=== PATIENT | male | born 1970 | race Caucasian/White ===

== ENCOUNTER 2018-01-20 22:38 | Emergency (ER) | payer BC ==
[2015-10-11 06:51] VITALS: BMI 27.0
[~2018-01-20 22:38] MED LIST: APIDRA SOL100 UNIT/1; BAYER ASPIRIN325 MG PO; CELEXA20 MG; CELEXA20 MG PO; COUMADIN5 MG PO; ELIQUIS2.5 MG PO; GABAPENTIN100 MG PO; GLIPIZIDE10 MG PO; GLUCOPHAGE1000 MG PO; K-DUR20 MEQ PO; LEVEMIR100 U/M1 SQ; MS CONTIN15 MG PO; MS CONTIN30 MG PO; NIACIN250 M1 PO; NOVOLOG100 U/M1; NOVOLOG100 U/M1 SC; PERCOCET 10/3251 TA1; PERCOCET 10/3251 TA1 PO; PRINIVIL20 MG PO; TOUJEO SOL300 UNIT/1; ZOCOR20 MG PO
[2018-01-20 23:15] LABS: BASOPHILS 0.5 % (0-2); EOSINOPHILS 3.9 % (0-7); HEMATOCRIT 43.8 % (42.0-54.0); HEMOGLOBIN 15.4 g/dL (13.5-17.5); IMMATURE GRANULOCYTES 0.2 % (0-5); LYMPHOCYTES 50.2 % (15-50); MCH 32.8 pg (26.0-34.0); MCHC 35.2 g/dL (31.0-37.0); MCV 93.2 fL (80.0-100.0); MEAN PLATELET VOLUME 10.8 fL (7.4-10.4); MONOCYTES 12.4 % (2-11); NEUTROPHILS 32.8 % (40-80); PLATELET COUNT 376 10x3/uL (130-400); RDW 12.6 % (11.5-14.5); WBC 8.2 10x3/uL (4.8-10.8)
[2018-01-20 23:20] LABS: APTT 27.4 SECONDS (22.8-39.4); INR 0.97 (0.85-1.17); PROTIME 12.5 SECONDS (11.6-15.0)
[2018-01-20 23:21] LABS: D-DIMER-QUANTITATIVE 0.33 ug/mLFEU (0.20-0.54)
[2018-01-20 23:23] LABS: ALBUMIN 3.3 g/dL (3.4-5.0); ALKALINE PHOSPHATASE 75 U/L (46-116); ALT (SGPT) 23 U/L (10-68); BILIRUBIN - TOTAL 0.47 mg/dL (0.2-1.3); CALC OSMOLALITY 286 mosm/kg (275-300); CALCIUM 7.9 mg/dL (8.5-10.1); CARBON DIOXIDE 24.2 mmol/L (21.0-32.0); CHLORIDE - SERUM 104 mmol/L (98-107); CREATININE - SERUM 1.1 mg/dL (0.6-1.3); GLUCOSE 249 mg/dL (74-106); POTASSIUM - SERUM 3.9 mmol/L (3.5-5.1); PROTEIN - SERUM 6.7 g/dL (6.4-8.2); SODIUM 139 mmol/L (136-145); UREA NITROGEN 15 mg/dL (7-18); eGFR NON AFRICAN AMERICAN 76 mL/min (90-120)
[2018-01-20 23:35] LABS: CHOL - HDL RATIO 4.4 ratio (2.3-4.9); CHOLESTEROL, TOTAL 166 mg/dL (0-200); CKMB 1.1 U/L (0.0-3.6); CREATINE KINASE 64 UL (21-232); HDL CHOLESTEROL 38 mg/dL (32-96); LDL CHOLESTEROL 83 mg/dL (0-100); LDL-HDL RATIO 2.2 ratio (1.5-3.5); PRO BNP 34 pg/mL (0-125); TRIGLYCERIDE 226 mg/dL (30-200); TROPONIN-I < 0.017 ng/mL (0.000-0.060)
== END 2018-01-21 03:50 | disposition home or self-care (01) ==
LOC: D.ER 22:38
PROVIDERS: Family Medicine
DX: R07.9 Chest pain, unspecified (principal); E11.9 Type 2 diabetes mellitus without complications; I10 Essential (primary) hypertension

== ENCOUNTER → 2020-03-28 18:23 | Outpatient (CLI) | payer BC ==
[2015-10-11 06:51] VITALS: BMI 27.0
[2020-03-28 18:56] LABS: BASOPHILS 0.5 % (0-2); EOSINOPHILS 2.2 % (0-7); HEMATOCRIT 47.1 % (42.0-54.0); HEMOGLOBIN 15.9 g/dL (13.5-17.5); IMMATURE GRANULOCYTES 0.2 % (0-5); LYMPHOCYTES 40.7 % (15-50); MCH 31.8 pg (26.0-34.0); MCHC 33.8 g/dL (31.0-37.0); MCV 94.2 fL (80.0-100.0); MEAN PLATELET VOLUME 11.4 fL (7.4-10.4); MONOCYTES 12.3 % (2-11); NEUTROPHILS 44.1 % (40-80); PLATELET COUNT 385 10x3/uL (130-400); RDW 13.5 % (11.5-14.5); WBC 5.8 10x3/uL (4.8-10.8)
[2020-03-28 19:53] LABS: ERYTHROCYTE SEDIMENTATION RATE 0 mm/hr (0-20)
== END | disposition home or self-care (01) ==
LOC: D.LABREF 18:23
PROVIDERS: ATTEND Orthopaedic Surgery
DX: M25.561 Pain in right knee (principal); M25.562 Pain in left knee

== ENCOUNTER → 2020-03-30 08:50 | Outpatient (CLI) | payer BC ==
[2015-10-11 06:51] VITALS: BMI 27.0
== END | disposition home or self-care (01) ==
LOC: D.NM 08:50
PROVIDERS: ATTEND Clinical Nurse Specialist Family Health
DX: Z96.651 Presence of right artificial knee joint (principal)

== ENCOUNTER → 2020-05-06 07:33 | Outpatient (CLI) | payer BC ==
[2015-10-11 06:51] VITALS: BMI 27.0
--- NOTE | ~2020-05-06 | HEMODYNAMI ---
PATIENT:SHANDA ESCALANTE MEDICAL RECORD: [id number] : 68 LOCATION:[facility] ADMISSION DATE: 05/06/20 Generatedon:05/06/20208:40 Patient name: SHANDA ESCALANTE Patient #: [id number] SSN: : 1970 Date of study: 05/06/2020 Page: Of Hemodynamic Procedure Report Patient Data Patient Demographics Procedure consent was obtained First Name: SHANDA Gender: Male Last Name: AVA : 1970 Middle Initial: DARCI Age: 50 year(s) Patient #: [id number] Race: Unknown Additional ID: [id number] Contact details Address: [address] [place] [address] TRAIL State: [place] City: [place] Zip code: [address] Admission Admission Data Admission Date: 05/06/2020 Admission Time: 7:33 Procedure Procedure Types Cath Procedure Peripheral Cath Diagnostic Procedure Miscellaneous Aspiration/Injection (Joint) Procedure Description Procedure Date Procedure Date: 05/06/2020 Procedure Start Time: 8:17 Procedure Staff Name Function Robin Valero MD Performing Physician Milvia MENDOZA RN Nurse [place] RT Monitor Procedure Data Cath Procedure Fluoroscopy Diagnostic fluoroscopy Total fluoroscopy Time: 0.7 time: 0.7 min min Diagnostic fluoroscopy Total fluoroscopy dose: 7 dose: 7 mGy mGy Hemodynamics Rest Pre Cath Intra NCS Post Cath Procedure Log Time Note 7:57:33 Dipak iRver RT (R) (CV) sent for patient. Start room use. 7:57:48 Patient received from Other to IR Alert and oriented. Tansferred to table in Supine position. 7:57:51 Signed procedure consent form obtained from patient. 7:57:52 Correct patient and procedure confirmed by team. 7:57:54 Full Disclosure recording started 7:57:56 Pre-procedure instructions explained to patient. 8:01:14 Is patient on blood thinner?No 8:01:24 nkda 8:01:40 Bilateral Knee was prepped with betadine and draped in sterile fashion. 8:16:18 Physician arrived 8:16:19 --------ALL STOP TIME OUT------ 8:16:19 Final Timeout: patient, procedure, and site verified with staff and physician. All members of the team are in agreement. 8:16:38 Bilateral knee site verified by team. 8:16:57 Sedation plan: Local Anesthetic Medication:Lidocaine 8:17:13 Procedure started. 8:17:20 Local anesthetic to Right Knee with Lidocaine 1% by Robin Valero MD.INITIAL ACCESS ONLY 8:17:23 SAFE-T PLUS MYELOGRAM TRAY opened to sterile field. 8:17:23 SAFE-T PLUS MYELOGRAM TRAY opened to sterile field. 8:29:18 Local anesthetic to left knee with Lidocaine 1% by Robin Valero MD.ADDITIONAL ACCESS 8:38:21 Procedure ended.(Physican Out) 8:38:32 Fluoroscopy time 00.70 minutes. 8:38:38 Fluoroscopy dose: 7 mGy 8:38:38 Flurop Dose total: 7 8:39:38 bilateral sites stable bandaides appled fluid sent to lab Device Usage Item Name Manufacture Quantity Catalog Hospital Part Current Minimal Lot# / Number Charge Number Stock Stock Serial# Code SAFE-T [employer] 2 [id number] PLUS MYELOGRAM TRAY Signature Audit [place] Stage Time Signature Unsigned Intra-Procedure 05/06/2020 Idpak 8:40:00 AM Aleta RT (R) (CV) [facility] [address] [place] [address]
[2020-05-06 10:22] LABS: PROTEIN - BODY FLUID 2.3 G/DL
[2020-05-06 10:22] LABS: PROTEIN - BODY FLUID 2.9 G/DL
[2020-05-06 12:48] LABS: NEUT - BF 72 %
[2020-05-06 12:49] LABS: NEUT - BF 63 %
== END | disposition home or self-care (01) ==
LOC: D.RAD 07:33
PROVIDERS: Orthopaedic Surgery; ATTEND Clinical Nurse Specialist Family Health
DX: T85.9XXA Unspecified complication of internal prosthetic device, implant and graft, initial encounter (principal)